=== PATIENT | female | born 1975 | race Caucasian/White ===

== ENCOUNTER 2023-10-12 09:20 | Emergency (ER) | payer OTHER, SELFPAY ==
--- NOTE | 2023-10-12 09:30 | ED.DENTAL ---
HPI - Dental/Oral General Chief complaint: Dental/Oral Stated complaint: TOOTHACHE Source: patient Mode of arrival: ambulatory History of Present Illness HPI Narrative: 48 y/o female presented for c/o left lower dental pain for 2 days. Reports swelling to the gum around the tooth. Endorses this tooth is scheduled for root canal in October. Taking ibuprofen for pain. Denies neck pain/swelling, n/v/d/f/c. MD Complaint: tooth pain Related Data Home Medications Medication Instructions Recorded Confirmed propranolol 10 mg tablet 10 mg PO Q12H 10/12/23 10/12/23 zolmitriptan 5 mg tablet (Zomig) 0 mg PO .COMPLEX 10/12/23 10/12/23 Allergies Allergy/AdvReac Type Severity Reaction Status Date / Time Sulfa (Sulfonamide Allergy Rash Verified 10/12/23 09:31 Antibiotics) Review of Systems Review of Systems: CONSTITUTIONAL: Denies body aches, fever, chills ENT: Denies rhinorrhea, congestion, sore throat, or otalgia. Reports dental pain CARDIOVASCULAR: Denies chest pain, palpitations RESPIRATORY: Denies cough or dyspnea. SKIN: Denies rash, itching, or wounds. MUSCULOSKELETAL: Denies myalgia. NEUROLOGIC: Denies headache, numbness, tingling, or weakness. [facility] Past Medical History Medical History (Updated 10/12/23 @ 09:40 by Nasra Cruz, [employer]ENTICE) No pertinent past medical history Comments At time of signature, I have reviewed and agree with nursing past medical, surgical, social and family history unless otherwise noted. Please see nursing chart for further information. There is no relevant family history pertinent to the presenting complaint Exam Narrative: GENERAL: Appears in pain; no acute distress. HEAD: Normocephalic, atraumatic. EYES: EOMI. No redness or drainage. Conjunctivae normal. ENT: Dental pain location of #20, abscess noted, firm and tender, no drainage or fluctuance, tooth has bridge. Mucous membranes pink and moist. TMs normal bilaterally. Throat normal. Uvula midline. NECK: Normal AROM. No induration or tenderness below mandible. No lymphadenopathy. CHEST: No respiratory distress. Clear to auscultation. HEART: Regular rate and rhythm. No murmur appreciated. SKIN: Warm, dry, no rash. Normal skin turgor. NEURO: No focal deficits. Alert and oriented x3. Gait steady. Course Course Emergency Course: Patient is aware of diagnosis, understands and agrees to treatment plan. Anticipatory guidance given. Patient agrees to follow-up as directed and is aware of reasons to seek care at the emergency department. Portions of this record may have been created with voice recognition software Level of Care: Express Care Visit MDM - Dental/Oral MDM Narrative Medical decision making narrative: Patients pain and complaint coupled with physical findings are consistent with dental abscess.There are no focal signs of space occupying lesions that are compromising to the airway; no dysphagia, odynophagia, dysphonia, or dyspnea. No uvular deviation or soft palate edema. The floor of the mouth is soft with no signs of Brad's Angina; no induration below mandible, no neck pain. Patient is without trismus or drooling and able to swallow secretions. Patient is non-toxic appearing. Discussed physical exam findings. Advised supportive measures and signs/symptoms to go to the ER. Pt is appropriate for outpt treatment and f/u. Differential Diagnosis Differential diagnosis: Likely gingival abscess, dental caries, toothache, dental abscess, fracture of tooth and aphthous ulcer Discharge Plan Discharge Clinical Impression: Dental abscess Patient Disposition: Home, Self-Care Condition: Stable Instructions: Antibiotic Form, Dental Abscess (ED) Additional Instructions: Take antibiotic as directed May apply heat or ice to the face Gentle brushing and flossing. Rinse mouth with warm salt water at least 2 times a day. Alternate Tylenol and ibuprofen as needed for pain Follow-up with the dentis
[2023-10-12 09:31] VITALS: BP 113/88; PULSE 54; RESP 16; TEMP 36.4; O2SAT 100
[2023-10-12 09:32] VITALS: BP 113/88; PULSE 54; RESP 16; TEMP 36.4; O2SAT 100
== END 2023-10-12 09:42 | disposition home or self-care (01) ==
PROVIDERS: Emergency Provider Nurse Practitioner Family; PCP Hospitalist
DX: K04.7 Periapical abscess without sinus (principal)
CPT/HCPCS: 99213; G0463